=== PATIENT | female | born 1945 | race Caucasian/White ===

== ENCOUNTER → 2023-12-09 13:25 | Outpatient (REF) | payer MEDICARE, OTHER, SELFPAY | LOC: WDC 13:25 | PROVIDERS: ATTENDING PHYSICIAN Family Medicine | DX: Z12.31 Encounter for screening mammogram for malignant neoplasm of breast (principal) | CPT/HCPCS: 77063; 77067 ==

== ENCOUNTER → 2024-02-05 10:11 | Outpatient (REF) | payer MEDICARE, OTHER, SELFPAY | LOC: RAD 10:11 | PROVIDERS: ATTENDING PHYSICIAN Internal Medicine Cardiovascular Disease; FAMILY PHYSICIAN Family Medicine | DX: R06.02 Shortness of breath (principal); Z79.899 Other long term (current) drug therapy | CPT/HCPCS: 71046 ==

== ENCOUNTER → 2024-02-17 07:03 | Outpatient (REF) | payer MEDICARE, OTHER, SELFPAY ==
[2024-02-17] MEDS: LEXISCAN 0.400000000000000022 MG IV (09:29)
== END ==
LOC: RCS 07:03
PROVIDERS: ATTENDING PHYSICIAN Physician Assistant; FAMILY PHYSICIAN Family Medicine
DX: R06.02 Shortness of breath (principal); I20.0 Unstable angina; I10 Essential (primary) hypertension; I48.0 Paroxysmal atrial fibrillation; Z79.899 Other long term (current) drug therapy; I44.7 Left bundle-branch block, unspecified
CPT/HCPCS: 78452; 93017; A9500; J2785

== ENCOUNTER 2024-02-17 22:22 | Emergency (ER) | payer MEDICARE, OTHER, SELFPAY ==
[2024-02-17 22:24] VITALS: BP 156/80
[2024-02-17 22:53] LABS: % Basophils 1.7 % (0-2); % Eosinophils 4.3 % (0-6); % Immature Granulocytes 0.3 % (0-0.5); % Lymphocytes 40.7 % (20.5-51.1); % Monocytes 10.9 % (1.7-9.3); % Neutrophils 42.1 % (42.2-75.2); Absolute Basophils 0.1 10^3/uL (0-0.2); Absolute Eosinophils 0.3 10^3/uL (0-0.7); Absolute Lymphocytes 2.4 10^3/uL (1.2-3.4); Absolute Monocytes 0.6 10^3/uL (0.1-0.6); Absolute Neutrophils 2.4 10^3/uL (1.4-6.5); Hematocrit 31.6 % (37.0-47.0); Hemoglobin 9.8 g/dL (12.0-16.0); Mean Corpuscular Hgb 24.4 pg (27.0-31.0); Mean Corpuscular Volume 78.8 fL (81.0-99.0); Mean Platelet Volume 8.9 fL (7.4-10.4); Nucleated Red Blood Cells % 0 %; Platelet Count 309 10^3/uL (130-400); Red Blood Cell Count 4.01 10^6/uL (4.20-5.40); Red Cell Dist. Width 16.3 % (11.5-14.5); White Blood Cell Count 5.8 10^3/uL (4.8-10.8)
[2024-02-17 22:56] VITALS: BP 154/69
[2024-02-17 23:00] VITALS: BP 143/72
[2024-02-17 23:07] LABS: ALT (SGPT) 20 U/L (0-35); AST (SGOT) 29 U/L (14-36); Albumin 4.5 g/dl (3.5-5.0); Alkaline Phosphatase 77 U/L (38-126); Blood Urea Nitrogen 13 mg/dl (7-17); Calcium 9.4 mg/dl (8.4-10.2); Carbon Dioxide 25 mmol/L (22-30); Chloride 97 mmol/L (98-107); Glucose 251 mg/dl (70-99); Potassium 3.9 mmol/L (3.5-5.1); Sodium 132 mmol/L (135-145); Total Bilirubin 0.4 mg/dl (0.2-1.3); Total Protein 7.4 g/dl (6.3-8.2); eGFR > 60.00
[2024-02-17 23:19] LABS: Troponin I < 0.012 ng/ml
[2024-02-18 00:11] VITALS: BP 158/73
[2024-02-18 01:00] VITALS: BP 161/87
[2024-02-18 01:06] LABS: Iron 34 ug/dl (37-170)
[2024-02-18 01:12] LABS: NT-proBNP 195 pg/ml
[2024-02-18 01:15] LABS: Percent Saturation 8 % (20-50); Total Iron Binding Capacity 389 ug/dl (265-497)
[2024-02-18 02:00] VITALS: BP 152/72
[2024-02-18 02:39] LABS: Folate 9.6 ng/ml (2.76-20); Vitamin B12 850 pg/ml (239-931)
--- NOTE | 2024-02-18 03:22 | ED.GENMED ---
History of Present Illness
General
Chief Complaint: Breathing Problem
Source: patient, records and spouse
Exam Limitations: none
Time Seen by Provider: 02/17/24 23:29
Nursing documentation reviewed up to this point in time: agreed with
History of Present Illness
History of Present Illness:
78-year-old female with past medical history of atrial fibrillation on Xarelto, hypertension, hyperlipidemia, diabetes, sleep apnea who presents to the emergency room with her for evaluation of shortness of breath. Patient reports that she
has had progressive symptoms for at least the past 3 months perhaps even longer. She says that she believes she has asthma and she has been prescribed by her PCP (Dr. Schuster) as needed rescue inhaler. She says that her shortness of breath typically
occurs with exertion and improves with rest and rescue inhaler. Symptoms have generally been worsening and patient says that she had initially spoke with Dr. Schuster and had outpatient chest x-ray which was nondiagnostic�she says that she was
recommended to see her director of exhibits to ensure that her symptoms were noncardiac prior to consideration for further treatment of asthma/reactive airway disease. To this end she actually went for an outpatient stress test today which she completed
without issue although she has not yet gotten the report back from it. She says she is due for an echocardiogram later this week. She says that tonight she had some increased shortness of breath from what her usual has been�she says typically her
symptoms occur with exertion and improved with rescue inhaler but tonight she had some shortness of breath that lasted for about an hour while she was resting and did not improve with rescue inhaler. For this reason she came to the emergency room.
She says she gets some generalized tightness in her arms. Denies any chest pain. She denies any swelling in the legs. She denies any coughing or fevers. She denies any GI issues including specifically denying any blood in the stools. She denies
any other issues.
Past History
Past History
ED Past Medical History: Arrthythmia (Paroxysmal atrial fibrillation), HTN, Hypercholesterolemia and Other (UTI and and BLadder infections, Diverticulitis, left bundle branch block)
ED Past Surgical History: Appendectomy, Cardiac (Radiofrequency ablation for atrial fibrillation in 2013. Cardiac catheterization July 2020), Cholecystectomy, Gynecological (Hysterectomy, Tubal,) and Other (Bladder surg twice, Ovarian cyst that
attached to the small intestine 4 inches of bowel removed,)
Social History
Tobacco: Non-smoker
Alcohol: None
Drug: None
Personal:
Living: with family
Employment: Employed
Family History
Family History: Hypertension
Review of Systems
Review of Systems
All Other Systems: ROS reviewed and negative except as documented in HPI and ROS
Constitutional: Reports fatigue; Denies fever or chills
EENT: Denies sore throat or runny nose
Respiratory: Reports trouble breathing; Denies cough
Cardiac: Denies chest pain or palpitations
ABD/GI: Denies abdominal pain, nausea, vomiting, diarrhea, bloody stools or black stools
: Denies flank pain
Musculoskeletal: Denies edema, neck pain or back pain
Neurological: Denies dizzy or headache
Phy Exam
Physical Exam
Physical Exam:
General: Awake, alert, oriented x3; no acute distress
Head: Normocephalic, atraumatic
Eyes: Conjunctiva normal, sclera anicteric
Throat: Airway intact, handling secretions
Neck: Trachea midline, no JVD
Lungs: Clear to auscultation bilaterally, no wheezing, rales, rhonchi
Heart: Regular rate and rhythm, no murmurs, gallops, or rubs
Abd: Soft, non distended, nontender
Rectal: External hemorrhoids; brown stool in the rectal vault Hemoccult negative
Neuro: Cranial nerves grossly intact, speech fluid
Skin: no rash
Extremities: No edema in extremities, equal pulses in all extremities
Scores
Heart Failure Risk
Heart Failure Risk Score: Not Applicable
Heart Score for Chest Pain Patients
STEMI patient?: Not applicable
Withdrawal Assessment of Alcohol
Withdrawal Assessment Completed?: Not applicable
Course
Orders/Labs/Results
Orders:
Orders
02/17/24 22:29
Electrocardiogram (*1) Urgent
Reason for Study: Shortness of Breath
EKG- Treatment ONCE
02/17/24 22:45
CMP [Comprehensive Metabolic Panel] Urgent
Complete Blood Count/With Diff Urgent
Troponin I Urgent
02/18/24 00:00
CR Chest - 2 Views Urgent
Reason For Exam: sob
02/18/24 00:44
B12 [Vitamin B12] Urgent
Ferritin Urgent
Folate Urgent
Iron Urgent
NT-proBNP Urgent
Total Iron Binding Urgent
02/18/24 00:58
Electrocardiogram (*1) Urgent
Reason for Study: Shortness of Breath
EKG- Treatment ONCE
Abnormal Lab Results
02/17/24 02/18/24
22:45 00:44
RBC 4.01 L 10^6/uL
(4.20-5.40)
Hgb 9.8 L g/dL
(12.0-16.0)
Hct 31.6 L %
(37.0-47.0)
MCV 78.8 L fL
(81.0-99.0)
MCH 24.4 L pg
(27.0-31.0)
MCHC 31.0 L g/dL
(33.0-37.0)
RDW 16.3 H %
(11.5-14.5)
Neutrophils % 42.1 L %
(42.2-75.2)
Monocytes % 10.9 H %
(1.7-9.3)
Sodium 132 L mmol/L
(135-145)
Chloride 97 L mmol/L
(98-107)
Glucose 251 H mg/dl
(70-99)
Iron 34 L ug/dl
(37-170)
% Saturation 8 L %
(20-50)
Ferritin 9.0 L ng/ml
(11.1-264.0)
02/17/24 22:45
02/17/24 22:45
Vital Signs
Initial and Last Documented VS:
Initial Vital Signs
Temp Pulse Resp BP Pulse Ox
36.6 C 92 26 156/80 100
02/17/24 22:24 02/17/24 22:24 02/17/24 22:24 02/17/24 22:24 02/17/24 22:24
Last Documented Vital Signs
Temp Pulse Resp BP Pulse Ox
36.6 C 84 15 152/72 96
02/17/24 22:24 02/18/24 02:45 02/18/24 02:45 02/18/24 02:00 02/18/24 02:45
MDM/Problems Addressed
Differential Diagnosis Includes:
CHF, angina, pneumonia, pneumothorax, anemia, deconditioning
MDM/Problems Addressed:
78-year-old female presents for evaluation of increasing shortness of breath that has been ongoing for months but seem to be a bit worse tonight. She actually has started outpatient workup including a cardiac stress test earlier today. She is set
to have some blood work done but has not had it drawn yet and is supposed to have an echocardiogram as well. Hypertensive with very mild tachypnea in triage which has normalized by my assessment. She has a normal pulse ox on room air. Her
physical exam is as above. Will plan to place an IV check labs including a CBC and a CMP. Will check troponin and proBNP. Will check chest x-ray. Will monitor on telemetry reassess after the above.
Labs: CBC shows anemia to 9.8�this is decreased from her baseline value of 13.8 from October 2021. Patient cannot recall when her last blood work was done; she says she is supposed to get blood drawn and has a prescription for labs including a CBC
which have not been done. This certainly can account for symptoms especially given gradual progression over months. Low suspicion that this is acute anemia based on her vital signs and clinical picture; she has not noticed any blood in her stools
and is Hemoccult negative here. Will add iron studies, B12, folate. On review of the rest of her workup: Her CBC shows random glucose of 250 in the setting of known diabetes but no DKA. Her troponin is undetectable. Her proBNP is not elevated.
Chest x-ray reviewed by me shows no cardiomegaly, no pulmonary edema, no pneumonia or pneumothorax and no other acute pathology. While she does have many cardiac risk factors there is nothing to suggest here in the acute setting that this is an
emergent cardiac issue�no chest pain, undetectable troponin, nothing on exam, labs or chest x-ray to suggest acute CHF. While continued cardiac evaluation is dumont based on her history and I wonder if symptomatic anemia might explain her symptoms
entirely. I do not see a clear indication for admission to the hospital at this point�she is above transfusion threshold, is not having any active bleeding and has no signs of other emergent pathology. I did offer her admission for observation
here and she prefers to go home. Awaiting results of iron studies and will continue to observe for short period to ensure stable vitals.
Iron studies returned and she has low iron saturation and ferritin, low total iron level, high normal TIBC�these findings in the setting of microcytic anemia are consistent with iron deficiency anemia. Will start patient on iron supplementation.
Her vitals have been stable throughout her ED visit and she is feeling well. I think she is stable for discharge and she has close follow-up plan already arranged�there is already plan for outpatient echocardiogram and she has a prescription for
outpatient lab work and I explained to her that she will need to have repeat blood work drawn within the next week and follow-up with her primary doctor (Dr. Schuster). She feels very comfortable with this plan. We did discuss in details red flags
and return precautions including escalation of symptoms. All questions answered.
Chronic conditions affecting care:
Hypertension, hyperlipidemia, diabetes�higher risk for heart disease
Acute Exacerbation and/or Progression of Chronic Illness:
Acutely hypertensive
Acute Exacerbation and/or Progression of Chronic Illness: HTN
*Radiology
Radiology exam reviewed: preliminary read by ED provider
*Pulse Oximetry
Patient hypoxic: no
*EKG
Interpreted by ED Provider?: Yes
Heart Rate: 86
Rate: normal
Rhythm: sinus
[place]: left axis deviation
Interval: normal interval
QRS Pattern: left bundle branch block
Ischemia: non-specific ST changes
*Critical Care Note
Total Time (30-74mins, 75-104mins- exclusive of procedures): Not Applicable
Data Reviewed
Review of Other/Old Records Reveals: Labs, Records and Testing
Source: patient, records and spouse
Patient Management
Social determinants of health affecting care: Strong social support
Escalation/DeEscalation of care consider admission/obs:
Considered admission for observation but using shared decision making patient was discharged with a strong outpatient follow-up plan and strict return precautions
ED Attending Note
-
Portions of this chart may have been created with voice recognition software.� Occasional wrong word or��sound alike� substitutions may have occurred due to the inherent limitations of voice recognition software.
Discharge Plan
Departure
Patient Disposition: Home (Routine Discharge)
Date of Disposition: 02/18/24
Time of Disposition: 02:54
Patient with high blood pressure during this ER visit?: Yes
Discharge Problem:
Symptomatic anemia, Shortness of breath
Instructions: Shortness of Breath (Dyspnea) (DC), Anemia caused by low iron in adults - Discharge instructions, BLOOD PRESSURE
Prescriptions:
New
ferrous sulfate [Iron (ferrous sulfate)] 325 mg (65 mg iron) tablet
325 mg PO DAILY Qty: 30 0RF
No Action
pantoprazole 40 MG tablet,delayed release (DR/EC)
40 mg PO DAILY
[id number]-pkwku-[id number]-pnd-ujk-hwpufa [krill oil] 1 EACH capsule
350 mg PO DAILY
sitagliptin phosphate [Januvia] 100 MG tablet
100 mg PO DAILY
nitroglycerin 0.4 MG tablet, sublingual
0.4 mg sublingual [id number] PRN (Reason: chest pain)
amiodarone [Pacerone] 200 MG tablet
200 mg PO DAILY
metoprolol succinate 50 MG tablet extended release 24 hr
50 mg PO HS
rivaroxaban [Xarelto] 20 MG tablet
20 mg PO HS
vit C,N-Zt-yuazu-lutein-zeaxan [PreserVision AREDS-2] 1 EACH capsule
1 ea PO BID
isosorbide mononitrate 60 MG tablet extended release 24 hr
120 mg PO DAILY
cholecalciferol (vitamin D3) 1,000 UNITS tablet
1,000 units PO DAILY
psyllium husk (aspartame) [Metamucil Fiber Singles] 1 PACKET powder in packet
1 packet PO DAILY
clonazepam 0.5 MG tablet
0.5 - 1 mg PO HSPRN PRN (Reason: insomnia/anxiety)
cephalexin 500 mg tablet
500 mg PO Q6H 7 Days Qty: 28 0RF
cefdinir 300 mg capsule
300 mg PO BID Qty: 14 0RF
Referrals:
Hardeep Schuster MD [Family Provider] - Follow up in 5-7 days
Activity Restrictions/Additional Instructions:
You were seen in the emergency room for shortness of breath. Here in the emergency room you were found to be anemic (hemoglobin level was 9.8). We think that this is likely causing her symptoms. You were started on an iron supplement and it is
important that you follow-up with your primary doctor within the next week to have repeat blood work and to be reassessed after ER visit. Your blood pressure was slightly high today and that should be rechecked at your primary appointment. Your
EKG, blood work, and chest x-ray showed nothing to suggest that this is an emergent issue with your heart you should follow-up with your primary director of exhibits to discuss the results of your stress test today. If you notice any escalation of your
symptoms or any new symptoms that are concerning to you you should return to the emergency to be reassessed.
Thank you for visiting the Emergency Department at [facility].
1. Please schedule a follow up appointment as directed. Call first thing tomorrow morning to make an appointment.
2. If indicated, please take your medications as instructed and indicated on discharge paperwork.
3. If any of your symptoms do not improve, or persist, or become more severe within 6-12 hours, please return to the emergency department for further care.
4. Please return to the emergency department if you develop a headache, neck pain/stiffness, fever greater than 100.4F, chest pain, shortness of breath, persistent nausea, vomiting, slurred speech, difficulty walking, numbness/tingling, weakness,
signs of infection or any other symptoms that are worrisome to you.
Please call [phone] if you have any questions.
Interventions
Interventions:
*Risk Screen - Suicide Last Done: 02/17/24 22:24
*General Assessment Last Done: 02/17/24 23:09
*Neglect/Abuse Screening Last Done: 02/17/24 22:24
ED- Fall Risk Assessment Last Done: 02/17/24 23:09
*ED COVID-19 Vaccine History Last Done: 02/17/24 23:09
*Nursing Disposition Last Done: 02/18/24 03:03
ED- Cardiac Assessment Last Done: 02/17/24 23:05
ED- Pulmonary Assessment Last Done: 02/17/24 23:05
Discharge Date and Time
Discharge Date/Time: 02/18/24 03:03
Print Language: QATARI
== END 2024-02-18 03:03 | disposition home or self-care (01) ==
LOC: EMR 22:22
PROVIDERS: EMERGENCY PHYSICIAN Emergency Medicine; FAMILY PHYSICIAN Family Medicine
DX: D64.9 Anemia, unspecified (principal); R06.02 Shortness of breath; I48.91 Unspecified atrial fibrillation; I10 Essential (primary) hypertension; E78.00 Pure hypercholesterolemia, unspecified; E11.9 Type 2 diabetes mellitus without complications; G47.30 Sleep apnea, unspecified; Z79.01 Long term (current) use of anticoagulants; Z82.49 Family history of ischemic heart disease and other diseases of the circulatory system; Z87.440 Personal history of urinary (tract) infections; Z90.49 Acquired absence of other specified parts of digestive tract; Z90.710 Acquired absence of both cervix and uterus
CPT/HCPCS: 99283; 71046; 78452; 80053; 82607; 82728; 82746; 83540; 83550; 83880; 84484; 85025; 93005; 93017; A9500; J2785

== ENCOUNTER → 2024-02-22 07:02 | Outpatient (REF) | payer MEDICARE, OTHER, SELFPAY | LOC: RCS 07:02 | PROVIDERS: ATTENDING PHYSICIAN Physician Assistant; FAMILY PHYSICIAN Family Medicine | DX: R06.02 Shortness of breath (principal); I10 Essential (primary) hypertension; I48.0 Paroxysmal atrial fibrillation; I44.7 Left bundle-branch block, unspecified; R07.89 Other chest pain | CPT/HCPCS: 93306 ==

== ENCOUNTER 2024-04-27 11:27 | Day surgery (SDC) | payer MEDICARE, OTHER, SELFPAY ==
[2024-04-27 14:21] LABS: Glucose - Point of Care 168 mg/dl (70-99)
--- NOTE | 2024-04-27 16:06 | ITS.CL.IMPLP ---
Underwear Hemmer - Implant Loop
Implant Loop
Procedure Report:
Date of Procedure: 04/27/24
Primary Care Provider: Dr Hardeep Schuster
Procedure: Insertable Loop Recorder Implantation
Indication:
Atrial fibrillation
Procedure:
The patient was brought to the procedure area in a fasting state. The anterior chest was prepped and draped in standard sterile fashion. The fourth intercostal space along the left sternal border was identified and this area was anesthetized with 10
mL of 1% lidocaine. After gathering the skin in this area, a small punch incision was made at approx intercostal space 4-5 at left costo-sternal junction using the provided scalpel/punch tool. The loop recorder was loaded into the tunneling device.
A tunnel was created in the subcutaneous tissue at a 45� angle along the coronal plane away from the sternum and towards the left flank. The tunneling device was inverted and the plunger was depressed, inserting the loop recorder into the
subcutaneous space. The tunneling device was removed. Manual pressure provide hemostasis. Adequate signal was confirmed. The skin was closed with steri-strips. The estimated blood loss was < 1 cc. A clean dressing was placed over the wound.
There were no complications.
Implant:
Medtronic Reveal LINQ II
Conclusion:
Uncomplicated implantation of loop recorder.
Recommendation:
Routine ILR care.
Copy:
Dr Hardeep Schuster
== END 2024-04-27 14:10 | disposition home or self-care (01) ==
LOC: CATH 11:27
PROVIDERS: ATTENDING PHYSICIAN Internal Medicine Cardiovascular Disease; FAMILY PHYSICIAN Family Medicine
DX: Z09 Encounter for follow-up examination after completed treatment for conditions other than malignant neoplasm (principal); I10 Essential (primary) hypertension; I48.0 Paroxysmal atrial fibrillation; Z79.01 Long term (current) use of anticoagulants; E11.9 Type 2 diabetes mellitus without complications
CPT/HCPCS: 33285; 82962; C1764

== ENCOUNTER 2024-11-22 05:36 | Emergency (ER) | payer MEDICARE, OTHER, SELFPAY ==
[2024-11-22] VITALS (9 sets, daily range): BP systolic 140–172; BP diastolic 64–84; BMI 29.8
[2024-11-22] MEDS: DUONEB 3 ML INH (06:10)
--- NOTE | 2024-11-22 06:12 | ED.GENMED ---
History of Present Illness
General
Chief Complaint: Chest Pain
Source: patient and spouse
Exam Limitations: none
Time Seen by Provider: 11/22/24 05:56
Nursing documentation reviewed up to this point in time: agreed with
History of Present Illness
History of Present Illness:
79 female with diabetes high blood pressure airway disease on amiodarone although had a loop recorder that showed no A-fib being weaned off, not currently on blood thinners presents with shortness of breath acute on chronic issue she has been
prepping for colonoscopy for the last 2 nights, has sleep apnea noncompliant with her BiPAP, woke up with gasping for air chest pain took her rescue inhaler with some relief no leg edema no chills
Past History
Past History
ED Past Medical History: Arrthythmia (Paroxysmal atrial fibrillation), Asthma, HTN, Hypercholesterolemia and Other (UTI and and BLadder infections, Diverticulitis, left bundle branch block)
ED Past Surgical History: Appendectomy, Cardiac (Radiofrequency ablation for atrial fibrillation in 2012. Cardiac catheterization July 2020), Cholecystectomy, Gynecological (Hysterectomy, Tubal,) and Other (Bladder surg twice, Ovarian cyst that
attached to the small intestine 4 inches of bowel removed,)
Social History
Tobacco: Non-smoker
Alcohol: None
Drug: None
Personal:
Living: with family
Employment: Employed
Family History
Family History: Hypertension
Review of Systems
Review of Systems
All Other Systems: Not applicable
Constitutional: Reports fatigue; Denies fever
EENT: Reports no symptoms
Respiratory: Reports cough and trouble breathing
Cardiac: Reports chest pain; Denies diaphoresis, palpitations or syncope
ABD/GI: Reports diarrhea (Prep for scope)
: Reports no symptoms
Neurological: Reports no symptoms
Phy Exam
Physical Exam
Physical Exam:
Physical Exam
General: 71 female sitting up, looks dyspneic
Neck: No jaundice
Heart: Regular
Lungs: Faint expiratory wheeze
Abdomen: Nontender
Neuro: alert and oriented. no focal neurological deficits
Skin: no rash
Psychiatric: well kept. interactive and cooperative
Extremities: no edema. no calf tenderness.
Scores
Heart Score for Chest Pain Patients
STEMI patient?: No
History: Slightly or Non-Suspicious
ECG: Nonspecific Repolarization
Age: >/= 65 years
Risk Factors: 1 or 2 Risk Factors
Troponin: </= Normal Limit
Heart Score for Chest Pain Patients: 4
Heart Score Risk: 20.3% MACE over next 6 weeks
Course
Orders/Labs/Results
Orders:
Orders
11/22/24 05:36
Electrocardiogram (*1) Urgent
Reason for Study: Chest Pain
11/22/24 05:37
EKG- Treatment ONCE
11/22/24 06:02
Add On- LAB Urgent
Tests Added?: pBNP
Ipratropium/Albuterol Sulfate [Duoneb] 3 ml INH R NOW STA
11/22/24 06:03
CR Chest Portable - 1 View Urgent
Comment:
Reason For Exam: sob
Reason Study Needs to be Portable: Patient Unstable
11/22/24 06:05
Complete Blood Count/With Diff Urgent
Comprehensive Metabolic Panel Urgent
NT-proBNP Urgent
Comment: ADD ON
Troponin I Urgent
11/22/24 09:09
Troponin I Urgent
Abnormal Lab Results
11/22/24
06:05
Absolute Monos (auto) 0.7 H 10^3/uL
(0.1-0.6)
Monocytes % 9.7 H %
(1.7-9.3)
Glucose 184 H mg/dl
(70-99)
Calcium 10.3 H mg/dl
(8.4-10.2)
Albumin 5.1 H g/dl
(3.5-5.0)
11/22/24 06:05
11/22/24 06:05
Vital Signs
Initial and Last Documented VS:
Initial Vital Signs
Temp Pulse Resp BP Pulse Ox
98.2 F 70 28 140/80 100
11/22/24 05:40 11/22/24 05:40 11/22/24 05:40 11/22/24 05:40 11/22/24 05:40
Last Documented Vital Signs
Temp Pulse Resp BP Pulse Ox
98.2 F 89 16 146/75 98
11/22/24 05:40 11/22/24 06:44 11/22/24 06:44 11/22/24 06:44 11/22/24 06:44
MDM/Problems Addressed
Differential Diagnosis Includes:
Reactive airway disease, ACS heart failure pneumonia pneumothorax less likely PE
MDM/Problems Addressed:
Shortness of breath
Chronic conditions affecting care:
Shortness of breath hypertension PAF not with AF
Acute Exacerbation and/or Progression of Chronic Illness:
Shortness of breath
*Critical Care Note
Total Time (30-74mins, 75-104mins- exclusive of procedures): Not Applicable
Update Note
Update Note:
7:45 AM update prior records reviewed nonobstructive CAD multiple stress test stress echoes, diastolic dysfunction on prior echoes, not tachycardic, hypoxic will try nebs consideration for steroids see how she does
8:30 AM patient feeling better after neb, no longer wheezing, workup negative thus far we will repeat troponin, she has a nebulizer at home sent home with standing dose of nebs
10 AM, second troponin noted, previous had a long conversation with patient about importance of using her CPAP she does have a nebulizer at home states she will try to use her CPAP as prescribed
ED Attending Note
-
Portions of this chart may have been created with voice recognition software.� Occasional wrong word or��sound alike� substitutions may have occurred due to the inherent limitations of voice recognition software.
Discharge Plan
Departure
Patient Disposition: Home (Routine Discharge)
Date of Disposition: 11/22/24
Time of Disposition: 10:07
Patient with high blood pressure during this ER visit?: No
Condition: Good
Discharge Problem:
Increasing shortness of breath
Instructions: Shortness of Breath (Dyspnea) (DC), Chest Pain DCA Follow Up
Prescriptions:
New
ipratropium-albuterol 0.5 mg-3 mg(2.5 mg base)/3 mL solution for nebulization
3 ml inhalation Q6H PRN (Reason: shortness of breath) Qty: 180 3RF
No Action
amiodarone [Pacerone] 200 MG tablet
100 mg PO DAILY
metoprolol succinate 50 MG tablet extended release 24 hr
50 mg PO HS
PreserVision AREDS-2 1 EACH capsule
1 ea PO BID
cholecalciferol (vitamin D3) 1,000 UNITS tablet
1,000 units PO DAILY
Metamucil Fiber Singles 1 PACKET powder in packet
1 packet PO BID
losartan 50 mg Tablet
50 mg PO DAILY
isosorbide mononitrate 120 mg Tablet Extended Release 24 Hr
120 mg PO DAILY
rosuvastatin 5 mg Tablet
5 mg PO DAILY
metformin 500 mg Tablet
250 mg PO BID
Referrals:
Hardeep Schuster MD [Family Provider] -
Activity Restrictions/Additional Instructions:
DuoNebs every 3-4 hours as needed for cough or shortness of breath
Use your CPAP as prescribed
Interventions
Interventions:
*General Assessment Last Done: 11/22/24 06:25
*ED- Fall Risk Assessment Last Done: 11/22/24 06:25
*ED COVID-19 Vaccine History Last Done: 11/22/24 06:25
ED- Cardiac Assessment Last Done: 11/22/24 06:28
ED- Pulmonary Assessment Last Done: 11/22/24 06:28
Discharge Date and Time
Print Language: ROMANSH
[2024-11-22 06:20] LABS: % Basophils 1.7 % (0-2); % Eosinophils 2.8 % (0-6); % Immature Granulocytes 0.4 % (0-0.5); % Lymphocytes 42.3 % (20.5-51.1); % Monocytes 9.7 % (1.7-9.3); % Neutrophils 43.1 % (42.2-75.2); Absolute Basophils 0.1 10^3/uL (0-0.2); Absolute Eosinophils 0.2 10^3/uL (0-0.7); Absolute Monocytes 0.7 10^3/uL (0.1-0.6); Absolute Neutrophils 3.1 10^3/uL (1.4-6.5); Hematocrit 42.1 % (37.0-47.0); Hemoglobin 14.8 g/dL (12.0-16.0); Mean Corp Hgb Conc. 35.2 g/dL (33.0-37.0); Mean Corpuscular Hgb 30.9 pg (27.0-31.0); Mean Corpuscular Volume 87.9 fL (81.0-99.0); Nucleated Red Blood Cells % 0 %; Platelet Count 251 10^3/uL (130-400); Red Blood Cell Count 4.79 10^6/uL (4.20-5.40); Red Cell Dist. Width 12.6 % (11.5-14.5); White Blood Cell Count 7.1 10^3/uL (4.8-10.8)
[2024-11-22 06:32] LABS: ALT (SGPT) 29 U/L (0-35); AST (SGOT) 28 U/L (14-36); Albumin 5.1 g/dl (3.5-5.0); Alkaline Phosphatase 101 U/L (38-126); Blood Urea Nitrogen 17 mg/dl (7-17); Calcium 10.3 mg/dl (8.4-10.2); Carbon Dioxide 24 mmol/L (22-30); Chloride 98 mmol/L (98-107); Estimated Creatinine Clearance 81 ml/min; Glucose 184 mg/dl (70-99); Potassium 4.4 mmol/L (3.5-5.1); Sodium 135 mmol/L (135-145); Total Bilirubin 0.8 mg/dl (0.2-1.3); Total Protein 8.1 g/dl (6.3-8.2); eGFR > 60.00
[2024-11-22 06:43] LABS: NT-proBNP 181 pg/ml; Troponin I < 0.012 ng/ml
[2024-11-22 09:40] LABS: Troponin I < 0.012 ng/ml
== END 2024-11-22 10:15 | disposition home or self-care (01) ==
LOC: EMR 05:36
PROVIDERS: Student in an Organized Health Care Education/Training Program; EMERGENCY PHYSICIAN Emergency Medicine; FAMILY PHYSICIAN Family Medicine
DX: R06.02 Shortness of breath (principal); I10 Essential (primary) hypertension; I48.0 Paroxysmal atrial fibrillation; J45.909 Unspecified asthma, uncomplicated; E78.00 Pure hypercholesterolemia, unspecified; G47.30 Sleep apnea, unspecified; Z90.49 Acquired absence of other specified parts of digestive tract; Z79.899 Other long term (current) drug therapy
CPT/HCPCS: 99285; 94640; 71045; 80053; 83880; 84484; 85025; 93005

== ENCOUNTER 2024-11-24 06:21 | Day surgery (SDC) | payer MEDICARE, OTHER, SELFPAY ==
[2024-11-24 07:40] LABS: Glucose - Point of Care 155 mg/dl (70-99)
== END 2024-11-24 09:12 | disposition home or self-care (01) ==
LOC: GI 06:21
PROVIDERS: ATTENDING PHYSICIAN Specialist
DX: Z12.11 Encounter for screening for malignant neoplasm of colon (principal); D12.3 Benign neoplasm of transverse colon; K57.30 Diverticulosis of large intestine without perforation or abscess without bleeding; Z86.0101 Personal history of adenomatous and serrated colon polyps
CPT/HCPCS: 45380; 88305; 82962

== ENCOUNTER → 2024-11-29 08:01 | Outpatient (REF) | payer MEDICARE, OTHER, SELFPAY | LOC: RCS 08:01 | PROVIDERS: ATTENDING PHYSICIAN Internal Medicine Cardiovascular Disease; FAMILY PHYSICIAN Family Medicine | DX: I48.0 Paroxysmal atrial fibrillation (principal) | CPT/HCPCS: 93306 ==

== ENCOUNTER → 2024-12-12 13:41 | Outpatient (REF) | payer MEDICARE, OTHER, SELFPAY | LOC: DHSLP 13:41 | PROVIDERS: ATTENDING PHYSICIAN Internal Medicine Critical Care Medicine | DX: G47.33 Obstructive sleep apnea (adult) (pediatric) (principal) | CPT/HCPCS: 95800 ==